=== PATIENT | female | born 1980 | race Two or more races ===

== ENCOUNTER 2024-08-01 19:35 | Emergency (ER) | payer BC, OTHER ==
[~2024-08-01] VITALS: Ht 154.9 cm; Wt 121.0 kg
[2024-08-01] MEDS: ACETAMINOPHEN 325 MG TAB PO ONE (19:50)
--- NOTE | 2024-08-01 19:55 | ED.PDOC ---
History of Present Illness HPI Comments A 44 year old female presents to the ED with a chief complaint of fall onset today. Per EMS, patient was at the end of a vasquez when she fell forward, hit head and RT side face on the wall, was witnessed by family members. Patient states she was eating dinner when she experienced abdominal discomfort, was walking to the restroom when she fell forward. She is currently experiencing RT side forehead pain , headache and RT sided facial pain. Patient denies LOC, chest pain, dizziness, blurry vision, nausea. vomiting, diarrhea. No other symptoms or modifying factors present at this time. Chief Complaint: Fall Injury Time Seen by MD: 19:41 Reviewed Notes: Medications, Allergies Allergies: Coded Allergies: NO KNOWN ALLERGIES (Unverified , 08/01/24) Information Source: Patient, Emergency Med Personnel Mode of Arrival: EMS Severity: Moderate Timing: Hours Duration: Since onset Prehospital treatment: None Past Medical History PAST MEDICAL HISTORY: Denies Surgical History: Denies all surgeries PELLETIZER TENDER History: No Pertinent PELLETIZER TENDER History Family History Family History: Reviewed,noncontributory to illness, No family hx of Cancer, No family hx of DM, No family hx of Heart phillip, No family hx of HTN, No family hx ofKidney phillip, No family hx of Liver phillip, No family hx of Lung phillip, No family hx of Stroke Social History Smoker: Non-Smoker Alcohol: Denies ETOH Use Drugs: Denies Drug Use Lives In: Home Constitutional: denies: chills, diaphoresis, fatigue, fever, malaise, sweats, weakness, others EENTM: denies: blurred vision, double vision, ear bleeding, ear discharge, ear drainage, ear pain, ear ringing, eye pain, eye redness, hearing loss, mouth pain, mouth swelling, nasal discharge, nose bleeding, nose congestion, nose pain, photophobia, tearing, throat pain, throat swelling, voice changes, others Respiratory: denies: cough, hemoptysis, orthopnea, SOB at rest, shortness of breath, SOB with excertion, stridor, wheezing, others Cardiovascular: denies: chest pain, dizzy spells, diaphoresis, Dyspnea on exertion, edema, irregular heart beat, left arm pain, lightheadedness, palpitat ions, PND, syncope, others Gastrointestinal: denies: abdomen distended, abdominal pain, blood streaked bow els, constipated, diarrhea, dysphagia, difficulty swallowing, hematemesis, melena, nausea, poor appetite, poor fluid intake, rectal bleeding, rectal pain, vomiting, others Genitourinary: denies: abnormal vagina bleeding, burning, dyspareunia, dysuria, flank pain, frequency, hematuria, incontinence, pain, , vagina discharge, urgency, others Neurological: reports: headache; denies: dizziness, fainting, left sided numbness, left sided weakness, numbness, paresthesia, pre-existing deficit, right sided numbness, right sided weakness, seizure, speech problems, tingling, tremors, weakness, others Musculoskeletal: denies: back pain, gout, joint pain, joint swelling, muscle pain, muscle stiffness, neck pain, others Integumetry: reports: others (abrasion RT side forehead); denies: bruises, change in color, change in hair/nails, dryness, laceration, lesions, lumps, rash, wounds Allergic/Immunocompromised: denies: Difficulty Healing, Frequent Infections, Hives, Itching, others Hematologic/Lymphatic: denies: anemia, blood clots, easy bleeding, easy bruising, swollen glands, others Endocrine: denies: excessive hunger, excessive sweating, excessive thirst, excessive urination, flushing, intolerance to cold, intolerance to heat, unexplained weight gain, unexplained weight loss, others Psychiatric: denies: anxiety, bipolar disorder, depression, hopeless, panic disorder, schizophrenia, sleepless, suicidal, others All Other Systems: Reviewed and Negative Physical Exam General Appearance: No Apparent Distress, Normal HEENT: Head (abrasion and heamtoma noted RT side forehead ), Normal ENT Inspection, Pharynx Normal, TMs Normal Neck: Full Range of Motion, Non-Tender, Normal, Normal Inspection Respiratory: Chest Non-Tender, Lungs Clear, No Accessory Muscle Use, No Respiratory Distress, Normal Breath Sounds Cardiovascular: No Edema, No JVD, No Murmur, No Gallop, Normal Peripheral Pulses, Regular Rate/Rhythm Breast Exam: Deferred Gastrointestinal: No Organomegaly, Non Tender, No Pulsatile Mass, Normal Bowel Sounds, Soft Genitalia: Deferred Pelvic: Deferred Rectal: Deferred Extremities: No calf tenderness, Normal capillary refill, Normal inspection, Normal range of motion, Non-tender, No pedal edema Musculoskeletal : Apperance: Normal Neurologic: Alert, utility aide II-XII nml as Tested, No Motor Deficits, Normal Affect, Normal Mood, No Sensory Deficits Cerebellar Function: Normal Reflexes: Normal Skin: Dry, Normal Color, Warm Lymphatic: No Adenopathy Was a procedure done? Was a procedure done?: No Differential Dx Considerations may include: intracranial injury, headache X-Ray, Labs, Meds, VS Vital Signs Date Time Temp Pulse Resp B/P (MAP) Pulse Ox O2 Delivery O2 Flow Rate FiO2 08/01/24 20:02 98.9 96 18 127/85 (99) 96 Current Medications Medications (Trade) Dose Ordered Sig/Niranjan Route Start Time Stop Time Status Last Admin Acetaminophen (Tylenol Tablet) 650 mg ONCE ONCE PO 08/01/24 19:45 08/01/24 19:46 DC 08/01/24 19:50 [place] [id number] Ph: [phone] DIAGNOSTIC IMAGING Diagnostic Imaging Report : [id number] Signed PATIENT: RICARDO ELLIOTT ACCT: [id number] UNIT: [id number] : 1980 LOC: ER ROOM / BED: / AGE / SEX: 44 / F ADM STATUS: REG ER SERVICE 41 ORDERING PHYSICIAN: ASHLEY METCALF MD PROCEDURE(s): HWOCT - HEAD WITHOUT CONTRAST REASON: fall with headstrike ORDER NUMBER(s): [id number], ACCESSION NUMBER(s): [id number] EXAM: CT HEAD WITHOUT CONTRAST INDICATION: fall with headstrike TECHNIQUE: CT of the head without intravenous contrast. Radiation Dose Information: CT Dose: CTDI volume is 59.24 mGy. Dose-length product is 48.96 mGy*cm The dose indicators for CT are the volume Computed Tomography (CT) Dose Index (CTDIvol) and the Dose Length Product (DLP), and are measured in units of mGy and mGy-cm, respectively. These indicators are not patient dose, but values generated from the CT scanner acquisition factors. The report includes radiation exposure data for exposures received during this examination. COMPARISON: None FINDINGS: There is no evidence of acute intracranial hemorrhage, extra-axial collection, mass effect, midline shift, herniation or hydrocephalus. The ventricles, sulci and cisterns are age appropriate. The lopez-white differentiation is intact. Patchy periventricular and subcortical white matter hypoattenuation is nonspecific but may be related to small vessel ischemic disease. The visualized paranasal sinuses and mastoid air cells are clear. Soft tissue swelling over the right frontal skull is noted with no underlying fracture or intracranial hemorrhage. IMPRESSION: 1. Scalp edema above the right eye 2. No skull fracture or intracranial hemorrhage. 3. ATED BY: NADIA DUFF Jr., DO DICTATED DATE/TIME: 08/01/242057 SIGNED BY: NADIA DUFF Jr., SIGNED DATE/TIME: 08/01/242057 CC: Time of 1ST Reevaluation: 20:11 Reevaluation 1ST: Unchanged Patient Education/Counseling: Diagnosis, Treatment, Prognosis Family Education/Counseling: No Family Present Additional Information I reviewed the following notes from patient's past medical encounters: The following tests were ordered, and results were reviewed by me: CT HEAD WITHOUT CONTRAST Additional Information was gathered from interviewing the following independent historians: EMS I reviewed and agreed with the following test results read by other providers: CT HEAD WITHOUT CONTRAST I discussed treatment and results with medical personnel and: patient Departure 1 Departure Time of Disposition: 21:14 (patients ct is benign. will discharge patient home.) Impression: Primary Impression: Fall Qualified Codes: W19.XXXA - Unspecified fall, initial encounter Additional Impressions: Migraine Qualified Codes: G43.109 - Migraine with aura, not intractable, without status migrainosus Hematoma Disposition: HOME / SELF CARE / HOMELESS Condition: Stable Additional Instructions: Your ct scan is benign. Fortunately you were not seriously injured. For pain you can take the followinam: Ibuprofen 400mg with food Noon: Acetaminophen 1000mg 4pm: Ibuprofen 400mg with food 8pm: Acetaminophen 1000mg You should follow up with your regular doctor within one week to ensure you are doing better. If your symptoms worsen or you have any other concerns then please return to the ER. Discharged With: Self Critical Care Note Critical Care Time?: No Stability Stability form required: No I personally scribed for ASHLEY METCALF MD ([email or web address]) on 08/01/24 at 19:55. Electronically submitted by Erica Saenz ([email or web address]). I personally scribed for ASHLEY METCALF MD ([email or web address]) on 08/01/24 at 21:09. Electronically submitted by Erica Saenz ([email or web address]). ASHLEY METCALF MD Aug 01, 2024 19:55
--- NOTE | 2024-08-01 21:01 | DVH ---
EXAM: CT HEAD WITHOUT CONTRAST INDICATION: fall with headstrike TECHNIQUE: CT of the head without intravenous contrast. Radiation Dose Information: CT Dose: CTDI volume is 59.24 mGy. Dose-length product is 48.96 mGy*cm The dose indicators for CT are the volume Computed Tomography (CT) Dose Index (CTDIvol) and the Dose Length Product (DLP), and are measured in units of mGy and mGy-cm, respectively. These indicators are not patient dose, but values generated from the CT scanner acquisition factors. The report includes radiation exposure data for exposures received during this examination. COMPARISON: None FINDINGS: There is no evidence of acute intracranial hemorrhage, extra-axial collection, mass effect, midline s hift, herniation or hydrocephalus. The ventricles, sulci and cisterns are age appropriate. The lopez-white differentiation is intact. Patchy periventricular and subcortical white matter hypoattenuation is nonspecific but may be related to small vessel ischemic disease. The visualized paranasal sinuses and mastoid air cells are clear. Soft tissue swelling over the right frontal skull is noted with no underlying fracture or intracrania l hemorrhage. IMPRESSION: 1. Scalp edema above the right eye 2. No skull fracture or intracranial hemorrhage. 3.
[2024-08-01 21:45] VITALS: BP 120/80; PULSE 90; RESP 18; TEMP 98.9; O2SAT 98
== END 2024-08-01 22:05 | disposition home or self-care (01) ==
LOC: EDBD 19:35 → ER 19:35
DX: S00.83XA Contusion of other part of head, initial encounter (principal); G43.909 Migraine, unspecified, not intractable, without status migrainosus; W22.01XA Walked into wall, initial encounter; Y93.89 Activity, other specified; Y92.89 Other specified places as the place of occurrence of the external cause; Y99.8 Other external cause status
CPT/HCPCS: 70450